=== PATIENT | female | born 1935 | race African-American/Black ===

== ENCOUNTER → 2016-09-28 | Outpatient (CLI) | payer MEDICARE, BC ==
[~2016-09-28] MED LIST: ASPI325T PO; AZOR5TAB2 PO; ENOX40P SQ; LACT PO; LORTA5 PO; METF500 PO; VYTO10TA35 PO
[2016-09-28 07:06] LABS: HEMATOCRIT 39.8 % (35.0-46.0); MEAN CELL VOLUME 82.7 FL (80.0-100.0); MEAN CORPUSCULAR HEMOGLOBIN 28.2 PG (27.0-34.0); MEAN CORPUSCULAR HGB CONC 34.1 % (32.0-36.0); PLATELET COUNT 234 TH/MM3 (150-450); RED BLOOD COUNT 4.81 MIL/MM3 (4.00-5.30); RED CELL DISTRIBUTION WIDTH 15.8 % (11.6-17.2); REVIEW FLAG FINAL; WHITE BLOOD COUNT 4.8 TH/MM3 (4.0-11.0)
[2016-09-28 07:24] LABS: BACTERIA, URINE RARE /hpf; BLOOD, URINE NEG (NEG); GLUCOSE,URINE NEG (NEG); KETONE, URINE NEG (NEG); MUCUS URINE FEW /lpf (OCC); NITRITE,URINE NEG (NEG); PH, URINE 6.5 (5.0-8.5); SQUAMOUS EPITHELIAL CELL URINE 2 /hpf (0-5); TRANSITIONAL EPI CELLS, URINE <1 /hpf; URINE COLOR YELLOW (YELLW/STRAW)
[2016-09-28 07:42] LABS: ANION GAP 6 MEQ/L (5-15); BLOOD UREA NITROGEN 12 MG/DL (7-18); CHLORIDE 102 MEQ/L (98-107); GLOMERULAR FILTRATION RATE 75 ML/MIN (>89); GLUCOSE,FASTING 163 MG/DL (74-99); LDL CHOLESTEROL 78 MG/DL (0-99); POTASSIUM 4.2 MEQ/L (3.5-5.1); SODIUM (NA) 136 MEQ/L (136-145); THYROXINE (T4) 10.5 MCG/DL (4.8-13.9)
[2016-09-28 15:47] LABS: HEMOGLOBIN A1a 0.9 %; HEMOGLOBIN Ao 82.7 %; HEMOGLOBIN LA1C 2.3 %; HEMOGLOBIN P3 4.2 %
== END ==
LOC: CLAB 06:35
PROVIDERS: ATTEND Internal Medicine
DX: E11.9 Type 2 diabetes mellitus without complications (principal); I10 Essential (primary) hypertension; R63.4 Abnormal weight loss; E78.5 Hyperlipidemia, unspecified; D64.9 Anemia, unspecified
CPT/HCPCS: 36415; 80048; 80061; 81001; 83036; 84436; 84443; 85027

== ENCOUNTER → 2017-01-11 | Outpatient (CLI) | payer MEDICARE, BC ==
[2017-01-11 08:37] LABS: MICRO ALBUMIN RANDOM URINE RAW 14.9 MG/L (0.0-30.0)
[2017-01-11 08:46] LABS: ANION GAP 7 MEQ/L (5-15); AST (GOT) 31 U/L (15-37); BICARBONATE 28.3 MEQ/L (21.0-32.0); BLOOD UREA NITROGEN 13 MG/DL (7-18); CHLORIDE 100 MEQ/L (98-107); GLOMERULAR FILTRATION RATE 83 ML/MIN (>89); GLUCOSE,FASTING 168 MG/DL (74-99); SODIUM (NA) 135 MEQ/L (136-145)
[2017-01-11 08:55] LABS: ALKALINE PHOSPHATASE 136 U/L (45-117); ALT (GPT) 35 U/L (10-53); FREE T3 2.47 PG/ML (2.18-3.98); FREE T4 1.11 NG/DL (0.76-1.46); HDL CHOLESTEROL 78.9 MG/DL (40.0-60.0); LDL CHOLESTEROL 132 MG/DL (0-99); TOTAL BILIRUBIN ADULT 0.3 MG/DL (0.2-1.0)
== END ==
LOC: CLAB 07:38
PROVIDERS: ATTEND Internal Medicine Endocrinology, Diabetes & Metabolism
DX: E11.65 Type 2 diabetes mellitus with hyperglycemia (principal); E11.42 Type 2 diabetes mellitus with diabetic polyneuropathy; E04.1 Nontoxic single thyroid nodule; E78.5 Hyperlipidemia, unspecified; I10 Essential (primary) hypertension
CPT/HCPCS: 36415; 80053; 80061; 82043; 84439; 84443; 84481

== ENCOUNTER → 2017-05-30 | Outpatient (CLI) | payer MEDICARE, BC ==
[2017-05-30 09:23] LABS: ANION GAP 8 MEQ/L (5-15); BICARBONATE 23.9 MEQ/L (21.0-32.0); BLOOD UREA NITROGEN 13 MG/DL (7-18); CHLORIDE 105 MEQ/L (98-107); GLOMERULAR FILTRATION RATE 84 ML/MIN (>89); GLUCOSE,FASTING 153 MG/DL (74-99); POTASSIUM 4.3 MEQ/L (3.5-5.1); SODIUM (NA) 137 MEQ/L (136-145)
[2017-05-30 09:28] LABS: BACTERIA, URINE RARE /hpf; BLOOD, URINE NEG (NEG); GLUCOSE,URINE NEG (NEG); KETONE, URINE NEG (NEG); NITRITE,URINE NEG (NEG); PH, URINE 6.5 (5.0-8.5); SQUAMOUS EPITHELIAL CELL URINE <1 /hpf (0-5); URINE COLOR LIGHT-YELLOW (YELLW/STRAW)
[2017-05-30 09:29] LABS: HDL CHOLESTEROL 87.5 MG/DL (40.0-60.0); LDL CHOLESTEROL 78 MG/DL (0-99)
[2017-05-30 15:42] LABS: HEMOGLOBIN A1a 0.9 %; HEMOGLOBIN A1b 1.9 %; HEMOGLOBIN Ao 83.1 %; HEMOGLOBIN LA1C 2.2 %
== END ==
LOC: CLAB 08:23
DX: I10 Essential (primary) hypertension (principal); E11.9 Type 2 diabetes mellitus without complications; E78.5 Hyperlipidemia, unspecified
CPT/HCPCS: 36415; 80048; 80061; 81001; 83036

== ENCOUNTER → 2017-11-23 | Outpatient (CLI) | payer MEDICARE, BC ==
[2017-11-23 17:05] LABS: CREATININE 0.89 MG/DL (0.50-1.00)
== END ==
LOC: CLAB 16:18
PROVIDERS: ATTEND Thoracic Surgery (Cardiothoracic Vascular Surgery)
DX: R94.4 Abnormal results of kidney function studies (principal)
CPT/HCPCS: 36415; 82565; 84520

== ENCOUNTER 2018-01-29 12:58 | Observation (INO) | payer MEDICARE, BC ==
[~2018-01-29] VITALS: Ht 160 cm; Wt 65.0 kg
[2018-01-29 13:10] VITALS: BP 234/95; PULSE 82; RESP 19; TEMP 97.6; O2SAT 99
[2018-01-29] MEDS ORDERED: METF500T PO (13:20)
[2018-01-29] MEDS ORDERED: ASPI-183 PO (13:20)
[2018-01-29] MEDS ORDERED: BLOOD PRESSURE PILL (13:22)
[2018-01-29] MEDS ORDERED: METOPROLOL TARTRATE 5 MG/5 ML VIAL IV PUSH ONE (13:30)
[2018-01-29] MEDS ORDERED: SODIUM CHLORIDE 0.9% FLUSH 10 ML FLUSH IVF PRN (13:30)
[2018-01-29 13:36] LABS: BASOPHIL % 0.6 % (0.0-2.0); EOSINOPHIL # 0.1 TH/MM3 (0-0.4); EOSINOPHIL % 1.1 % (0.0-4.0); HEMATOCRIT 44.3 % (35.0-46.0); HEMOGLOBIN 14.5 GM/DL (11.6-15.3); LYMPH % 21.2 % (9.0-44.0); LYMPHOCYTE # 1.5 TH/MM3 (1.0-4.8); MEAN CELL VOLUME 85.5 FL (80.0-100.0); MEAN CORPUSCULAR HGB CONC 32.7 % (32.0-36.0); MEAN PLATELET VOLUME 7.9 FL (7.0-11.0); MONO % 5.8 % (0.0-8.0); MONOCYTE # 0.4 TH/MM3 (0-0.9); NEUT % 71.3 % (16.0-70.0); PLATELET COUNT 247 TH/MM3 (150-450); RED BLOOD COUNT 5.18 MIL/MM3 (4.00-5.30); RED CELL DISTRIBUTION WIDTH 15.2 % (11.6-17.2); WHITE BLOOD COUNT 7.1 TH/MM3 (4.0-11.0)
[2018-01-29 13:57] LABS: ALBUMIN 4.4 GM/DL (3.4-5.0); ALT (GPT) 27 U/L (10-53); AST (GOT) 36 U/L (15-37); BICARBONATE 24.2 MEQ/L (21.0-32.0); BLOOD UREA NITROGEN 14 MG/DL (7-18); CALCIUM 9.1 MG/DL (8.5-10.1); CHLORIDE 99 MEQ/L (98-107); CREATININE 1.02 MG/DL (0.50-1.00); GLOMERULAR FILTRATION RATE 62 ML/MIN (>89); GLUCOSE,RANDOM 176 MG/DL (74-106); SODIUM (NA) 133 MEQ/L (136-145)
[2018-01-29 13:59] LABS: ALKALINE PHOSPHATASE 149 U/L (45-117); TOTAL BILIRUBIN ADULT 0.4 MG/DL (0.2-1.0); TOTAL PROTEIN 9.4 GM/DL (6.4-8.2); TROPONIN I LESS THAN 0.02 NG/ML (0.02-0.05)
--- NOTE | 2018-01-29 14:01 | RADRPT ---
EXAM DATE: 01/29/2018 1:52 PM EDT AGE/SEX: 82 years / Female INDICATIONS: Palpitations. CLINICAL DATA: This is the patient's initial encounter. Patient reports that signs and symptoms have been present for 1 day and indicates a pain score of 0/10. MEDICAL/SURGICAL HISTORY: . Hypercholesterolemia. Hypertension. Rheumatoid arthritis. Neck jennifer n. Oral lesions. Head trauma. Syncope. Hyperlipidemia. Diabetes. . Hysterectomy. COMPARISON: [facility] [place], 02/10[place]. . FINDINGS: Portable AP view of the chest demonstrates a normal-sized cardiac silhouette. No effusion, consolidat ion, or pneumothorax is identified. The bones and soft tissues demonstrate no acute finding. There is calcification of the aorta. CONCLUSION: No acute cardiopulmonary abnormality is identified. Electronically signed by: Jesus Jerome MD 01/29/2018 2:00 PM EDT
[2018-01-29 14:07] VITALS: BP 149/70; PULSE 59; RESP 17; O2SAT 98
[2018-01-29 14:35] LABS: BILIRUBIN, URINE NEG (NEG); BLOOD, URINE SMALL (NEG); GLUCOSE,URINE 50 mg/dL (NEG); HYALINE CAST, URINE 3 /lpf (RARE); KETONE, URINE NEG (NEG); MUCUS URINE FEW /lpf (OCC); NITRITE,URINE NEG (NEG); SQUAMOUS EPITHELIAL CELL URINE 1 /hpf (0-5); URINE COLOR Straw (YELLW/STRAW); URINE LEUKOCYTE ESTERASE TRACE (NEG)
--- NOTE | 2018-01-29 14:42 | RADRPT ---
EXAM DATE: 01/29/2018 2:21 PM EDT AGE/SEX: 82 years / Female INDICATIONS: Dizziness today. CLINICAL DATA: This is the patient's initial encounter. Patient reports that signs and symptoms have been present for 1 day and indicates a pain score of 0/10. MEDICAL/SURGICAL HISTORY: Hypertension. Diabetes. Hysterectomy. RADIATION DOSE: 51.22 CTDI (mGy) COMPAR[place]: [facility] [place], 02/10/2016. . TECHNIQUE: CT of the head without contrast. Using automated exposure control and adjustment of the mA and/or kV according to patient size, radiation dose was kept as low as reasonably achievable to ob tain optimal diagnostic quality images. FINDINGS: Cerebrum: The ventricles are normal for age. Stable decreased attenuation in the supratentorial whi te matter and internal capsule, characteristic of diffuse ischemic change, stable from 2016. No evide nce of midline shift, mass lesion, hemorrhage or acute infarction. No extraaxial fluid collections a re seen. Posterior Fossa: The cerebellum and brainstem are intact. The 4th ventricle is midline. The cerebe llopontine angle is unremarkable. Extracranial: The visualized portion of the orbits is intact. Skull: The calvaria is intact. No evidence of skull fracture. CONCLUSION: 1. No acute findings in the brain. 2. Ischemic white matter findings, unchanged from 2016. Electronically signed by: Aolnso Manzanares MD 01/29/2018 2:40 PM EDT
--- NOTE | 2018-01-29 14:43 | PD ---
HPI Chief Complaint: Syncope/Near-Syncope Time Seen by Provider: 13:17 Travel History International Travel<30 days: No Contact w/Intl Traveler<30days: No Traveled to known affect area: No History of Present Illness HPI 82-year-old female patient presents to the ER today brought in by EMS, started getting dizzy and felt like she was going to pass out, had a sudden onset of right flank pain which she stated was a 7 out of 10, lasted about 10-15 minutes and is now gone. She states that she is still feeling intermittent dizziness, but states that the room is not spinning around. She did not lose consciousness. She denies any chest pains, trouble breathing, or any other symptoms now. She states that she was feeling fine this morning, was getting ready to go to buddhist. Modifying Factors: None Associated Signs & Symptoms: Episode of dizziness, near syncope, right flank pain Risk Factors: Elderly PFSH Past Medical History Arthritis: Yes Asthma: No Autoimmune Disease: No Blood Disorders: No Anxiety: No Depression: No Heart Rhythm Problems: No Cancer: No Cardiovascular Problems: Yes High Cholesterol: Yes Chemotherapy: No Chest Pain: No Congestive Heart Failure: No COPD: No Cerebrovascular Accident: No Diabetes: Yes Patient Takes Glucophage: Yes Diminished Hearing: No Endocrine: Yes Gastrointestinal Disorders: No GERD: No Glaucoma: No Genitourinary: No Headaches: No Hepatitis: No Hiatal Hernia: No Hypertension: Yes Immune Disorder: No Implanted Vascular Access Dvce: Yes Kidney Stones: No Musculoskeletal: No Neurologic: No Psychiatric: No Reproductive: No Respiratory: No Immunizations Current: No Migraines: No Myocardial Infarction: No Radiation Therapy: No Renal Failure: No Seizures: No Sickle Cell Disease: No Sleep Apnea: No Thyroid Disease: No Triglycerides - High: Yes Ulcer: No Tetanus Vaccination: < 5 Years Influenza Vaccination: No ?: Not Menopausal: Yes Past Surgical History Abdominal Surgery: No AICD: No Appendectomy: No Arteriovenous Shunt: No Body Medical Devices: LISA TO THE RIGHT FEMUR AND RIGHT KNEE Cardiac Surgery: No Cholecystectomy: No Ear Surgery: No Endocrine Surgery: No Eye Surgery: No Genitourinary Surgery: No Gynecologic Surgery: Yes (HYSTERECTOMY) Hysterectomy: Yes Insulin Pump: No Joint Replacement: No Neurologic Surgery: No Oral Surgery: No Pacemaker: No Thoracic Surgery: No Other Surgery: Yes (HYSTERECTOMY) Social History Alcohol Use: No Tobacco Use: No Substance Use: No Allergies-Medications (Allergen,Severity, Reaction): Coded Allergies: penicillin G (Unverified Allergy, Severe, Edema, 01/29/18) Reported Meds & Prescriptions Reported Meds & Active Scripts Active Reported [Blood Pressure Pill] Metformin (Metformin HCl) 500 Mg Tab 500 Mg PO BIDPC Aspirin 325 Mg Tab 325 Mg PO DAILY Review of Systems Except as stated in HPI: all other systems reviewed are Neg Physical Exam Narrative GENERAL: Well-developed elderly -Malagasy female patient currently in mild distress. Awake and oriented 3. SKIN: Focused skin assessment warm/dry. HEAD: Atraumatic. Normocephalic. EYES: Pupils equal and round. No scleral icterus. No injection or drainage. ENT: No nasal bleeding or discharge. Mucous membranes pink and moist. NECK: Trachea midline. No JVD. Supple. CARDIOVASCULAR: Regular rate and rhythm. No murmur appreciated. RESPIRATORY: No accessory muscle use. Clear to auscultation. Breath sounds equal bilaterally. GASTROINTESTINAL: Abdomen soft, non-tender, nondistended. Hepatic and splenic margins not palpable. MUSCULOSKELETAL: No obvious deformities. No clubbing. No cyanosis. No edema. NEUROLOGICAL: Awake and alert. No obvious cranial nerve deficits. Motor grossly within normal limits. Normal speech. PSYCHIATRIC: Appropriate mood and affect; insight and judgment normal. Data Data Last Documented VS Vital Signs Date Time Temp Pulse Resp B/P (MAP) Pulse Ox O2 Delivery O2 Flow Rate FiO2 01/29/18 14:07 59 17 149/70 (96) 98 Room Air 01/29/18 13:10 97.6 Orders Orders Electrocardiogram (01/29/18 13:17) Complete Blood Count With Diff (01/29/18 13:17) Comprehensive Metabolic Panel (01/29/18 13:17) Troponin I (01/29/18 13:17) Act Partial Throm Time (Ptt) (01/29/18 13:17) Prothrombin Time / Inr (Pt) (01/29/18 13:17) Urinalysis - C+S If Indicated (01/29/18 13:17) Chest, Single Ap (01/29/18 13:17) Ct Brain W/O Iv Contrast(Rout) (01/29/18 13:17) Ecg Monitoring (01/29/18 13:17) Iv Access Insert/Monitor (01/29/18 13:17) Oximetry (01/29/18 13:17) Sodium Chloride 0.9% Flush (Ns Flush) (01/29/18 13:30) Ct Abd/Pel W/O Iv Contrast (01/29/18 13:17) Metoprolol Tartrate Inj (Lopressor Inj) (01/29/18 13:30) Admit Order (Ed Use Only) (01/29/18 15:33) Place In Observation (01/29/18 ) Vital Signs (Adult) Q4H (01/29/18 15:35) Activity Oob Ad Norma (01/29/18 15:35) Belt Puncher / Telemetry CLAUDIA.Q8H (01/29/18 15:35) Diet Heart Healthy (01/29/18 Dinner) Sodium Chloride 0.9% Flush (Ns Flush) (01/29/18 15:45) Sodium Chloride 0.9% Flush (Ns Flush) (01/29/18 21:00) Basic Metabolic Panel (Bmp) (01/30/18 06:00) Echo 2d Comp With Doppler (01/29/18 ) Us Carotid Arteries Comp Bilat (01/29/18 ) Enalaprilat Inj (Vasotec Inj) (01/29/18 15:45) Labs Laboratory Tests Test 01/29/18 13:25 01/29/18 14:00 White Blood Count 7.1 TH/MM3 Red Blood Count 5.18 MIL/MM3 Hemoglobin 14.5 GM/DL Hematocrit 44.3 % Mean Corpuscular Volume 85.5 FL Mean Corpuscular Hemoglobin 28.0 PG Mean Corpuscular Hemoglobin Concent 32.7 % Red Cell Distribution Width 15.2 % Platelet Count 247 TH/MM3 Mean Platelet Volume 7.9 FL Neutrophils (%) (Auto) 71.3 % Lymphocytes (%) (Auto) 21.2 % Monocytes (%) (Auto) 5.8 % Eosinophils (%) (Auto) 1.1 % Basophils (%) (Auto) 0.6 % Neutrophils # (Auto) 5.0 TH/MM3 Lymphocytes # (Auto) 1.5 TH/MM3 Monocytes # (Auto) 0.4 TH/MM3 Eosinophils # (Auto) 0.1 TH/MM3 Basophils # (Auto) 0.0 TH/MM3 CBC Comment DIFF FINAL Differential Comment Prothrombin Time 10.0 SEC Prothromb Time International Ratio 1.0 RATIO Activated Partial Thromboplast Time 22.2 SEC Blood Urea Nitrogen 14 MG/DL Creatinine 1.02 MG/DL Random Glucose 176 MG/DL Total Protein 9.4 GM/DL Albumin 4.4 GM/DL Calcium Level 9.1 MG/DL Alkaline Phosphatase 149 U/L Aspartate Amino Transf (AST/SGOT) 36 U/L Alanine Aminotransferase (ALT/SGPT) 27 U/L Total Bilirubin 0.4 MG/DL Sodium Level 133 MEQ/L Potassium Level 4.0 MEQ/L Chloride Level 99 MEQ/L Carbon Dioxide Level 24.2 MEQ/L Anion Gap 10 MEQ/L Estimat Glomerular Filtration Rate 62 ML/MIN Troponin I LESS THAN 0.02 NG/ML Urine Color Straw Urine Turbidity CLEAR Urine pH 6.0 Urine Specific [place] 1.006 Urine Protein 100 mg/dL Urine Glucose (UA) 50 mg/dL Urine Ketones NEG mg/dL Urine Occult Blood SMALL Urine Nitrite NEG Urine Bilirubin NEG Urine Urobilinogen LESS THAN 2 mg/dL Urine Leukocyte Esterase TRACE Urine RBC 2 /hpf Urine WBC 1 /hpf Urine Squamous Epithelial Cells 1 /hpf Urine Hyaline Casts 3 /lpf Urine Mucus FEW /lpf Microscopic Urinalysis Comment CULT NOT INDICATED MDM Medical Decision Making Medical Screen Exam Complete: Yes Emergency Medical Condition: Yes Medical Record Reviewed: Yes Interpretation(s) EKG shows normal sinus rhythm at a rate of 76 bpm. No signs of acute ST elevations. Nonspecific T-wave flipping in 3 and aVF. Laboratory Tests Test 01/29/18 13:25 01/29/18 14:00 Neutrophils (%) (Auto) 71.3 % (16.0-70.0) Activated Partial Thromboplast Time 22.2 SEC (24.3-30.1) Creatinine 1.02 MG/DL (0.50-1.00) Random Glucose 176 MG/DL (74-106) Total Protein 9.4 GM/DL (6.4-8.2) Alkaline Phosphatase 149 U/L (45-117) Sodium Level 133 MEQ/L (136-145) Estimat Glomerular Filtration Rate 62 ML/MIN (>89) Troponin I LESS THAN 0.02 NG/ML Urine Protein 100 mg/dL (NEG-TRACE) Urine Occult Blood SMALL (NEG) Urine Leukocyte Esterase TRACE (NEG) Urine Mucus FEW /lpf (OCC) Last [address] 6/17/18 1317 Signed Impressions: CONCLUSION: 1. No acute findings in the brain. 2. Ischemic white matter findings, unchanged from 2016. Chest X-Ray 01/29/181316 Signed Impressions: CONCLUSION: No acute cardiopulmonary abnormality is identified. Abdomen/Pelvis CT 01/29/181316 Signed Impressions: CONCLUSION: 1. Negative renal colic CT. Differential Diagnosis Near syncopal episode, right flank pain: Dehydration versus electrolyte abnormalities versus UTI/pyelonephritis versus renal colic versus dysrhythmias versus ACS Narrative Course Patient's blood pressure was fairly elevated in the ER. She was given IV metoprolol with improvement in blood pressures on reevaluation an hour later. She is also feeling better now or later. EKG did show some nonspecific T-wave changes in the inferior leads. No acute ST elevations. Lab work was fairly unremarkable. At this point, my plan would be to admit her for near syncope, hypertensive urgency. Case has been discussed with Dr. Garcia for admission. Diagnosis Primary Impression: Syncope Additional Impression: Hypertension Admitting Information Admitting Physician Requests: Admit Constance Noonan MD Jan 29, 2018 14:43
--- NOTE | 2018-01-29 14:49 | RADRPT ---
EXAM DATE: 01/29/2018 2:40 PM EDT AGE/SEX: 82 years / Female INDICATIONS: Right flank pain today. CLINICAL DATA: This is the patient's initial encounter. Patient reports that signs and symptoms have been present for 1 day and indicates a pain score of 8/10. MEDICAL/SURGICAL HISTORY: Hypertension. Diabetes. Hysterectomy. RADIATION DOSE: 5.45 CTDI (mGy) COMPARISON: No prior exams available for comparison. TECHNIQUE: Renal colic protocol. Multiple contiguous axial images were obtained through the abdomen. Images were obtained using multiple row detector helical technique. Using dose reduction techniques, radiation dose was kept as low as reasonably achievable to obtain optimal diagnostic quality images. FINDINGS: Right side: No calcified renal stones. No evidence of hydronephrosis. Normal dimension right ureter. Left side: No calcified renal stones. No evidence of hydronephrosis. Normal dimension with ureter. 2 cm low-density lesion mid pole characteristic of a cyst. Bladder: Smooth margins. No calcifications within the lumen. Other: No dilated loops of small or large bowel and stop no calcified gallstones. Normal dimension ab dominal aorta. No evidence of free fluid. CONCLUSION: 1. Negative renal colic CT. Electronically signed by: Alonso Manzanares MD 01/29/2018 2:47 PM EDT
[2018-01-29] MEDS ORDERED: ENALAPRILAT 1.25 MG/ML VIAL IV PUSH PRN (15:45)
[2018-01-29] MEDS ORDERED: SODIUM CHLORIDE 0.9% FLUSH 10 ML FLUSH IV FLUSH PRN (15:45)
[2018-01-29 16:06] VITALS: BP 164/77; PULSE 70; RESP 16; O2SAT 100
[2018-01-29] MEDS ORDERED: GLUCAGON 1 MG/ML VIAL OTHER PRN (17:30)
[2018-01-29] MEDS ORDERED: DEXTROSE 50% IN WATER 50 ML VIAL(D50) IV PUSH PRN (17:30)
--- NOTE | 2018-01-29 17:31 | HHI.HP ---
HPI Service [facility] Hospitalists Primary Care Physician Bandar Arreola MD Admission Diagnosis Near syncope/hypertensive urgency Diagnoses: Chief Complaint: Right sided back pain Nausea Dizziness Travel History International Travel<30 Days: No Contact w/Intl Traveler <30 Da: No Traveled to Known Affected Are: No History of Present Illness This is a 82-year-old -[place] female with past medical history significant for hypertension, DM and dyslipidemia who presents to [facility] ED with complaints of sudden onset of severe right sided back pain 1 day. Patient states that she has been feeling well and has been in her usual state of health. She woke up this morning and per her normal routine ate breakfast and took a shower eating ready for restorationist. While she was seated, she developed sudden onset of right-sided back pain that she states was the worst pain she has ever had, 10 out of 10 and worse with movement. Patient reports that shortly after the pain started, she was able to ambulate with great difficulty secondary to pain to her bedroom and lie down for about 5-10 minutes which helped to relieve her back pain some. She reports associated nausea and "feeling woozy". She denies any dizziness. She denies any lateralizing symptoms but does report that she felt weak all over and was concerned she would fall. She was able to get up and go to the kitchen and take a [employer] powder. She denies any recent injury or change in her regular activity level. Patient states she ambulates unassisted. She continues to drive. She denies any previous history of back spasms or kidney stones. She states she has been eating and drinking her normal amount. She reports good urine output and denies any complaints of dysuria. She denies any diarrhea or constipation. She denies any recent fever or chills. She denies any complaints of chest pain or shortness of breath. In the ED, she was noted to have uncontrolled BP of 234 /95. Her UA was significant for proteinuria, small blood and trace leukocytes. CBC is unremarkable. Chemistry panel significant for hyponatremia with sodium of 144, creatinine 1.02, glucose 176 and alk phos of 149. CT of abdomen and pelvis was unremarkable. CT the head showed no acute findings. CXR was unremarkable. At present, patient states she feels a little tired. She is not having any back pain at this time. Review of Systems Except as stated in HPI: all other systems reviewed are Neg Past Family Social History Past Medical History Hypertension Diabetes Dyslipidemia Past Surgical History Right ankle fracture surgery Hysterectomy Cataract sx Repair of right femur fracture Reported Medications [Blood Pressure Pill] Metformin (Metformin HCl) 500 Mg Tab 500 Mg PO BIDPC Aspirin 325 Mg Tab 325 Mg PO DAILY Allergies: Coded Allergies: penicillin G (Unverified Allergy, Severe, Edema, 01/29/18) Active Ordered Medications Current Medications Medications (Trade) Dose Ordered Sig/Tee Route Start Time Stop Time Status Last Admin (NS Flush) 2 ml UNSCH PRN IV FLUSH 01/29/18 15:45 (NS Flush) 2 ml BID IV FLUSH 01/29/18 21:00 (Vasotec Inj) 1.25 mg Q6H PRN IV PUSH 01/29/18 15:45 Family History Mother, heart disease Father, stroke Social History Patient denies any tobacco use, alcohol use or illicit drug use. Physical Exam Vital Signs Vital Signs Date Time Temp Pulse Resp B/P (MAP) Pulse Ox O2 Delivery O2 Flow Rate FiO2 01/29/18 16:12 01/29/18 16:06 70 16 164/77 (106) 100 01/29/18 14:07 59 17 149/70 (96) 98 Room Air 01/29/18 13:10 97.6 82 19 234/95 (141) 99 Physical Exam GENERAL: This is a well-nourished, well-developed elderly -[place] female patient, who appears much younger than stated age, in no apparent distress. Awake and alert. SKIN: No rashes, ecchymoses or lesions. Cool and dry. HEAD: Atraumatic. Normocephalic. No temporal or scalp tenderness. No facial asymmetry. EYES: Pupils equal round and reactive. Extraocular motions intact. No scleral icterus. No injection or drainage. ENT: Nose without bleeding or purulent drainage. Throat without erythema, tonsillar hypertrophy or exudate. Uvula midline. Airway patent. NECK: Trachea midline. No lymphadenopathy. Supple, nontender, no meningeal signs. CARDIOVASCULAR: Regular rate and rhythm without murmurs, gallops, or rubs. RESPIRATORY: Clear to auscultation. Breath sounds equal bilaterally. No wheezes , rales, or rhonchi. GASTROINTESTINAL: Abdomen soft, non-tender, nondistended. No hepato-splenomegaly , or palpable masses. No guarding. +Mild right sided CVAT. MUSCULOSKELETAL: Extremities without clubbing, cyanosis, or edema. No joint tenderness, effusion, or edema noted. No calf tenderness. NEUROLOGICAL: Awake and alert. Cranial nerves II through XII grossly intact. Motor and sensory grossly within normal limits. No focal neurologic findings appreciated. Normal speech. Laboratory Laboratory Tests Test 01/29/18 13:25 01/29/18 14:00 White Blood Count 7.1 Red Blood Count 5.18 Hemoglobin 14.5 Hematocrit 44.3 Mean Corpuscular Volume 85.5 Mean Corpuscular Hemoglobin 28.0 Mean Corpuscular Hemoglobin Concent 32.7 Red Cell Distribution Width 15.2 Platelet Count 247 Mean Platelet Volume 7.9 Neutrophils (%) (Auto) 71.3 Lymphocytes (%) (Auto) 21.2 Monocytes (%) (Auto) 5.8 Eosinophils (%) (Auto) 1.1 Basophils (%) (Auto) 0.6 Neutrophils # (Auto) 5.0 Lymphocytes # (Auto) 1.5 Monocytes # (Auto) 0.4 Eosinophils # (Auto) 0.1 Basophils # (Auto) 0.0 CBC Comment DIFF FINAL Differential Comment Prothrombin Time 10.0 Prothromb Time International Ratio 1.0 Activated Partial Thromboplast Time 22.2 Blood Urea Nitrogen 14 Creatinine 1.02 Random Glucose 176 Total Protein 9.4 Albumin 4.4 Calcium Level 9.1 Alkaline Phosphatase 149 Aspartate Amino Transf (AST/SGOT) 36 Alanine Aminotransferase (ALT/SGPT) 27 Total Bilirubin 0.4 Sodium Level 133 Potassium Level 4.0 Chloride Level 99 Carbon Dioxide Level 24.2 Anion Gap 10 Estimat Glomerular Filtration Rate 62 Troponin I LESS THAN 0.02 Urine Color Straw Urine Turbidity CLEAR Urine pH 6.0 Urine Specific [place] 1.006 Urine Protein 100 Urine Glucose (UA) 50 Urine Ketones NEG Urine Occult Blood SMALL Urine Nitrite NEG Urine Bilirubin NEG Urine Urobilinogen LESS THAN 2 Urine Leukocyte Esterase TRACE Urine RBC 2 Urine WBC 1 Urine Squamous Epithelial Cells 1 Urine Hyaline Casts 3 Urine Mucus FEW Microscopic Urinalysis Comment CULT NOT INDICATED Result Diagram: 01/29/18 8223 01/29/18 1325 Imaging Last Impressions Head CT 01/29/18 1317 Signed Impressions: CONCLUSION: 1. No acute findings in the brain. 2. Ischemic white matter findings, unchanged from 2016. Chest X-Ray 01/29/181316 Signed Impressions: CONCLUSION: No acute cardiopulmonary abnormality is identified. Abdomen/Pelvis CT 01/29/181316 Signed Impressions: CONCLUSION: 1. Negative renal colic CT. Caprini VTE Risk Assessment Caprini VTE Risk Assessment: Mod/High Risk (score >= 2) Caprini Risk Assessment Model Point Value = 1 Point Value = 2 Point Value = 3 Point Value = 5 Age 41-60 Minor surgery BMI > 25 kg/m2 Swollen legs Varicose veins or History of unexplained or recurrent spontaneous Oral contraceptives or hormone replacement Sepsis (< 1 month) Serious lung disease, including pneumonia (< 1 month) Abnormal pulmonary function Acute myocardial infarction Congestive heart failure (< 1 month) History of inflammatory bowel disease Medical patient at bed rest Age 61-74 Arthroscopic surgery Major open surgery (> 45 min) Laparoscopic surgery (> 45 min) Malignancy Confined to bed (> 72 hours) Immobilizing plaster cast Central venous access Age >= 75 History of VTE Family history of VTE Factor V Leiden Prothrombin [id number] Lupus anticoagulant Anticardiolipin antibodies Elevated serum homocysteine Heparin-induced thrombocytopenia Other congenital or acquired thrombophilia Stroke (< 1 month) Elective arthroplasty Hip, pelvis, or leg fracture Acute spinal cord injury (< 1 month) Prophylaxis Regimen Total Risk Factor Score Risk Level Prophylaxis Regimen 0-1 Low Early ambulation 2 Moderate Order ONE of the following: *Sequential Compression Device (SCD) *Heparin 5000 units SQ BID 3-4 Higher Order ONE of the following medications: *Heparin 5000 units SQ TID *Enoxaparin/Lovenox 40 mg SQ daily (WT < 150 kg, CrCl > 30 mL/min) *Enoxaparin/Lovenox 30 mg SQ daily (WT < 150 kg, CrCl > 10-29 mL/min) *Enoxaparin/Lovenox 30 mg SQ BID (WT < 150 kg, CrCl > 30 mL/min) AND/OR *Sequential Compression Device (SCD) 5 or more Highest Order ONE of the following medications: *Heparin 5000 units SQ TID (Preferred with Epidurals) *Enoxaparin/Lovenox 40 mg SQ daily (WT < 150 kg, CrCl > 30 mL/min) *Enoxaparin/Lovenox 30 mg SQ daily (WT < 150 kg, CrCl > 10-29 mL/min) *Enoxaparin/Lovenox 30 mg SQ BID (WT < 150 kg, CrCl > 30 mL/min) AND *Sequential Compression Device (SCD) Assessment and Plan Assessment and Plan 82-year-old -[place] female with past medical history significant for hypertension, DM and dyslipidemia who presents to [facility] ED with complaints of sudden onset of severe right sided back pain 1 day with associated generalized weakness, nausea and lightheadedness. Near syncopal episode Suspect nausea and dizziness secondary to severe back pain and hypertensive urgency, ?vasovagal episode CT head negative for acute process, images reviewed by me -obtain 2D echo and carotid US -PT eval/tx -neuro checks -check orthostatic BP measurements -fall precautions -Monitor on cardiac telemetry Severe right sided back pain, possibly secondary to back spasm or renal colic, now resolved CT abd/pelvis unremarkable, no e/o nephrolithiasis, images reviewed by me UA positive proteinuria, small blood and trace leukocytes Patient denies any history of kidney stones or back problems. She does exhibit right-sided CVA tenderness on exam. -PT eval/tx -fall precautions Hypertension, uncontrolled, suspect secondary to pain BP 234/95 at ED presentation, much improved,now 164/77 -We will resume patient on home blood pressure medication once medication reconciliation updated -Vasotec IV as needed with parameters -Continue to monitor BP and adjust treatment accordingly Diabetes mellitus -Diabetic heart healthy diet -Accu-Cheks and insulin sliding scale -Hold home dose of metformin KRYSTA, suspect secondary to decreased oral intake Creatinine 1.02, previous creatinine 0.89 11/23/17 -Hold metformin -Avoid nephrotoxic agents -Continue to monitor kidney function as indicated Hyponatremia, mild, asymptomatic -repeat BMP in am -encourage po fluid intake DVT prophylaxis -bilateral SCD/ESTRELLA hose The exam, history, and the medical decision-making described in the above note were completed with the assistance of the mid-level provider. I reviewed and agree with the findings presented. I attest that I had a [id number] encounter with the patient on the same day, and personally performed and documented my assessment and findings in the medical record. Patient seen and examined. She reports she is feeling better since arriving to the emergency room. No longer having dizziness. BP still elevated. GENERAL: This is a well-nourished, well-developed patient, in no apparent distress. CARDIOVASCULAR: Normal rate and regular rhythm without murmurs, gallops, or rubs. RESPIRATORY: Good respiratory efforts. Breath sounds equal and clear to auscultation bilaterally. GASTROINTESTINAL: Abdomen soft, non-tender, non-distended. Normal active bowel sounds MUSCULOSKELETAL: Extremities without cyanosis, or edema. NEURO: Alert & Oriented x4 to person, place, time, situation. Moves all ext x4 PSYCH: Appropriate mood and affect. A/P Patient with near syncope. Could be vasovagal in nature. Sounds like she might have passed a kidney stone or just a brief colic episode. Monitor overnight. Workup as above. Discussed Condition With patient, nursing staff, Nuvia Menchaca Jan 29, 2018 17:31 Sedrick Garcia MD Jan 29, 2018 18:12
[2018-01-29 17:35] VITALS: BP 173/73; PULSE 70; RESP 18; TEMP 98.2; O2SAT 96
[2018-01-29] MEDS: amLODIPine BESYLATE 5 MG TAB PO SCH (18:42)
[2018-01-29 20:13] VITALS: BP 147/70; PULSE 65; RESP 18; TEMP 98; O2SAT 99
[2018-01-29] MEDS: SODIUM CHLORIDE 0.9% FLUSH 10 ML FLUSH IV FLUSH SCH (21:24)
[2018-01-29] MEDS: INSULIN ASPART SUPPLEMENTAL SCALE SQ SCH (21:24)
[2018-01-29 22:58] VITALS: BP 145/67; PULSE 65; RESP 18; TEMP 98.1; O2SAT 98
[2018-01-30 02:55] VITALS: BP 129/62; PULSE 62; RESP 18; TEMP 98.1; O2SAT 96
[2018-01-30 07:24] VITALS: BP 157/74; PULSE 66; RESP 16; TEMP 97.6; O2SAT 96
[2018-01-30 08:02] VITALS: PULSE 72
[2018-01-30] MEDS: INSULIN ASPART SUPPLEMENTAL SCALE SQ SCH (08:17)
[2018-01-30] MEDS: amLODIPine BESYLATE 5 MG TAB PO SCH (08:17)
[2018-01-30] MEDS: SODIUM CHLORIDE 0.9% FLUSH 10 ML FLUSH IV FLUSH SCH (08:18)
[2018-01-30 09:31] LABS: BICARBONATE 26.1 MEQ/L (21.0-32.0); BLOOD UREA NITROGEN 13 MG/DL (7-18); CALCIUM 9.1 MG/DL (8.5-10.1); CHLORIDE 103 MEQ/L (98-107); CREATININE 0.81 MG/DL (0.50-1.00); GLOMERULAR FILTRATION RATE 82 ML/MIN (>89); GLUCOSE,RANDOM 142 MG/DL (74-106); SODIUM (NA) 138 MEQ/L (136-145)
[2018-01-30 09:32] LABS: PHOSPHORUS 3.5 MG/DL (2.5-4.9)
[2018-01-30] MEDS ORDERED: AMLO5 PO (10:11)
[2018-01-30] MEDS ORDERED: ASPI81TA23 PO (10:11)
--- NOTE | 2018-01-30 10:12 | HHI.DCPOC ---
Discharge Care Plan Diagnosis: (1) Back spasm (2) Intractable low back pain (3) Hypertension Goals to Promote Your Health * To prevent worsening of your condition and complications * To maintain your health at the optimal level Directions to Meet Your Goals Take your medications as prescribed Follow your dietary instruction Follow activity as directed Keep your appointments as scheduled Take your immunizations and boosters as scheduled If your symptoms worsen call your PCP, if no PCP go to Urgent Care Center or Emergency Room Smoking is Dangerous to Your Health. Avoid second hand smoke Call the 24-hour hour crisis hotline for domestic abuse at Suleiman Pedroza MD Jan 30, 2018 10:12
--- NOTE | 2018-01-30 10:17 | HHI.PR ---
Subjective Remarks Nursing denies any deterioration since last night. Patient herself says she feels much better, says she is doing well. Denies any back pain at this time. Objective Vital Signs Date Time Temp Pulse Resp B/P (MAP) Pulse Ox O2 Delivery O2 Flow Rate FiO2 01/30/18 07:24 97.6 66 16 157/74 (101) 96 01/30/18 02:55 98.1 62 18 129/62 (84) 96 01/29/18 22:58 98.1 65 18 145/67 (93) 98 01/29/18 20:13 98.0 65 18 147/70 (95) 99 01/29/18 17:35 98.2 70 18 173/73 (106) 96 01/29/18 16:12 01/29/18 16:06 70 16 164/77 (106) 100 01/29/18 14:07 59 17 149/70 (96) 98 Room Air 01/29/18 13:10 97.6 82 19 234/95 (141) 99 I/O 01/29/18 01/29/18 01/29/18 01/30/18 01/30/18 01/30/18 07:00 15:00 23:00 07:00 15:00 23:00 Intake Total 400 ml Balance 400 ml Intake Oral 400 ml # Voids 3 Result Diagram: 01/29/18 1325 01/30/18 0740 Objective Remarks Normal right flank tenderness to palpation noted today Sitting up in bed, awake, alert, no acute distress, pleasant demeanor A/P Assessment and Plan Intractable right flank pain -resolved. May have been either a kidney stone in the passed or a severe muscle spasm. UA is negative. Upon history review, there is no overt evidence of true syncopal symptoms. The patient's blood pressure is under control now the patient is wanting to go home. No need for carotid ultrasound or echocardiogram at this time. Patient has met maximal benefit from hospitalization and is clinically stable for discharge. Patient was advised that she may alternate with heating pad and ice application at home should this recur if this truly is a muscle spasm. Patient was warned not to sleep or nap on her heating pad at home. Informed her that if pain symptoms recurred and persisted to return to the ED. Suleiman Pedroza MD Jan 30, 2018 10:17
[2018-01-30] MEDS ORDERED: WALKER WHEELS/F1 MIS (11:50)
--- NOTE | 2018-01-30 23:15 | EKG ---
Date Performed: 01/29/2018 Time Performed: 13:17:40 PTAGE: 82 years EKG: Sinus rhythm NONSPECIFIC T-WAVE ABNORMALITY ABNORMAL ECG PREVIOUS TRACING : 02/10/2016 17.07 DOCTOR: Eddi Khan Interpretating Date/Time 01/30/2018 23:02:39
== END 2018-01-30 11:24 | disposition home or self-care (01) ==
LOC: NEPE 12:58 → NEDA 15:36 → NEPHCDU 16:20
PROVIDERS: ADMIT Hospitalist; ATTEND Hospitalist
DX: R55 Syncope and collapse (principal); M62.830 Muscle spasm of back; M54.5 Low back pain; R42 Dizziness and giddiness; I10 Essential (primary) hypertension; E11.9 Type 2 diabetes mellitus without complications; R80.9 Proteinuria, unspecified; E78.00 Pure hypercholesterolemia, unspecified; R11.0 Nausea; E78.5 Hyperlipidemia, unspecified; E87.1 Hypo-osmolality and hyponatremia; N17.9 Acute kidney failure, unspecified; R00.2 Palpitations; R94.31 Abnormal electrocardiogram [ECG] [EKG]
CPT/HCPCS: 70450; 71045; 74176; 80048; 80053; 81001; 82306; 82607; 82948; 84100; 84443; 84484; 85025; 85610; 85730; 93005; 96374; 97161; 99285; G0378; G8987; G8988; J1815

== ENCOUNTER 2018-02-01 09:30 | Emergency (ER) | payer MEDICARE, BC ==
[~2018-02-01] VITALS: Ht 160 cm; Wt 65.0 kg
[~2018-02-01 09:30] MED LIST changes: +AMLO5 PO; -ASPI325T PO; +ASPI81TA23 PO; -AZOR5TAB2 PO; +BLOOD PRESSURE PILL; -ENOX40P SQ; -LACT PO; -LORTA5 PO; -METF500 PO; +METF500T PO; -VYTO10TA35 PO; +WALKER WHEELS/F1 MIS
[2018-02-01 09:33] VITALS: BP 190/85; PULSE 75; RESP 16; TEMP 97.5; O2SAT 98
--- NOTE | 2018-02-01 09:54 | PD ---
HPI Chief Complaint: Hypertension Time Seen by Provider: 09:38 Travel History International Travel<30 days: No Contact w/Intl Traveler<30days: No Traveled to known affect area: No History of Present Illness HPI Patient is an 82-year-old female who returns to emergency room for evaluation of hypertension. Patient reports that she was admitted to the hospital on Tuesday for high blood pressure, was discharged on Tuesday with the same doses for her antihypertensive medication. Patient reports that she felt lightheaded this morning and took her blood pressure and noted to be over 200 systolics. Patient concerned that she may need another medication for her hypertension. Reports that during admission, she was only given IV medications for her hypertension and her home medications were not changed PFSH Past Medical History Arthritis: Yes Asthma: No Autoimmune Disease: No Blood Disorders: No Anxiety: No Depression: No Heart Rhythm Problems: No Cancer: No Cardiovascular Problems: Yes High Cholesterol: Yes Chemotherapy: No Chest Pain: No Congestive Heart Failure: No COPD: No Cerebrovascular Accident: No Diabetes: Yes Diminished Hearing: No Endocrine: Yes Gastrointestinal Disorders: No GERD: No Glaucoma: No Genitourinary: No Headaches: No Hepatitis: No Hiatal Hernia: No Hypertension: Yes Immune Disorder: No Implanted Vascular Access Dvce: Yes Kidney Stones: No Musculoskeletal: No Neurologic: No Psychiatric: No Reproductive: No Respiratory: No Immunizations Current: No Migraines: No Myocardial Infarction: No Radiation Therapy: No Renal Failure: No Seizures: No Sickle Cell Disease: No Sleep Apnea: No Thyroid Disease: No Triglycerides - High: Yes Ulcer: No ?: Not Menopausal: Yes Past Surgical History Abdominal Surgery: No AICD: No Appendectomy: No Arteriovenous Shunt: No Body Medical Devices: LISA TO THE RIGHT FEMUR AND RIGHT KNEE Cardiac Surgery: No Cholecystectomy: No Ear Surgery: No Endocrine Surgery: No Eye Surgery: No Genitourinary Surgery: No Gynecologic Surgery: Yes (HYSTERECTOMY) Hysterectomy: Yes Insulin Pump: No Joint Replacement: No Neurologic Surgery: No Oral Surgery: No Pacemaker: No Thoracic Surgery: No Other Surgery: Yes (HYSTERECTOMY) Social History Alcohol Use: No Tobacco Use: No Substance Use: No Allergies-Medications (Allergen,Severity, Reaction): Coded Allergies: penicillin G (Unverified Allergy, Severe, Edema, 01/29/18) Reported Meds & Prescriptions Reported Meds & Active Scripts Active Aspirin EC (Aspirin) 81 Mg Tabdr 81 Mg PO DAILY Reported [Blood Pressure Pill] Metformin (Metformin HCl) 500 Mg Tab 500 Mg PO BIDPC Review of Systems General / Constitutional: No: Fever Eyes: No: Visual changes HENT: Positive: Lightheadedness, No: Headaches, Neck Pain Cardiovascular: No: Chest Pain or Discomfort Respiratory: No: Shortness of Breath Gastrointestinal: No: Abdominal Pain Genitourinary: No: Dysuria Musculoskeletal: No: Pain Skin: No Rash Neurologic: No: Weakness, Dizziness, Syncope, Focal Abnormalities Psychiatric: No: Depression Endocrine: No: Polydipsia Hematologic/Lymphatic: No: Easy Bruising Physical Exam Narrative GENERAL: NAD SKIN: Focused skin assessment warm/dry. HEAD: Atraumatic. Normocephalic. EYES: Pupils equal and round. No scleral icterus. No injection or drainage. ENT: No nasal bleeding or discharge. Mucous membranes pink and moist. NECK: Trachea midline. No JVD. CARDIOVASCULAR: Regular rate and rhythm. No murmur appreciated. RESPIRATORY: No accessory muscle use. Clear to auscultation. Breath sounds equal bilaterally. GASTROINTESTINAL: Abdomen soft, non-tender, nondistended. Hepatic and splenic margins not palpable. MUSCULOSKELETAL: No obvious deformities. No clubbing. No cyanosis. No edema. NEUROLOGICAL: Awake and alert. No obvious cranial nerve deficits. Motor grossly within normal limits. Normal speech. PSYCHIATRIC: Appropriate mood and affect; insight and judgment normal. Data Data Last Documented VS Vital Signs Date Time Temp Pulse Resp B/P (MAP) Pulse Ox O2 Delivery O2 Flow Rate FiO2 02/01/18 09:33 97.5 75 16 190/85 (120) 98 Orders Orders Amlodipine (Norvasc) (02/01/18 10:00) [facility] Medical Decision Making Medical Screen Exam Complete: Yes Emergency Medical Condition: Yes Medical Record Reviewed: Yes Interpretation(s) Vital Signs Date Time Temp Pulse Resp B/P (MAP) Pulse Ox O2 Delivery O2 Flow Rate FiO2 02/01/18 09:33 97.5 75 16 190/85 (120) 98 Differential Diagnosis accelerated hypertension Narrative Course Patient with history of hypertension and diabetes, currently on amlodipine 5 mg daily for hypertension. Patient was recently admitted to the hospital for this , and was discharged on home medications after her blood pressure stabilized with IV medications. Patient would like to avoid hospital admission this time and requests medication adjustment. A call was placed to Dr. Arreola, her PCP, to review plan of care. Patient currently is symptomatic. Vital Signs Date Time Temp Pulse Resp B/P (MAP) Pulse Ox O2 Delivery O2 Flow Rate FiO2 02/01/18 09:33 97.5 75 16 190/85 (120) [address] Arreola, patient's PCP, request that patient's amlodipine being increased to 10 mg, he would like to see here in the office on Tuesday. Diagnosis Primary Impression: Hypertension Qualified Codes: I10 - Essential (primary) hypertension Patient Instructions: General Instructions Additional Instructions: Please take 10 mg of amlodipine (2 pills) daily instead of 5 mg of amlodipine Please follow-up with Dr. Arreola on Tuesday morning in the office Return to the ER as needed Disposition: 01 DISCHARGE HOME Condition: Stable Kymberly Duffy DO Feb 01, 2018 09:54
[2018-02-01] MEDS ORDERED: amLODIPine BESYLATE 5 MG TAB PO ONE (10:00)
[2018-02-01] MEDS ORDERED: AMLO5TAB2 PO (10:06)
[2018-02-01 10:09] VITALS: BP 194/81; PULSE 81; RESP 18; O2SAT 100
== END 2018-02-01 10:43 | disposition home or self-care (01) ==
LOC: NEPD 09:30
DX: I10 Essential (primary) hypertension (principal); E11.9 Type 2 diabetes mellitus without complications; E78.00 Pure hypercholesterolemia, unspecified; M19.90 Unspecified osteoarthritis, unspecified site; Z79.84 Long term (current) use of oral hypoglycemic drugs; Z79.82 Long term (current) use of aspirin; Z79.899 Other long term (current) drug therapy
CPT/HCPCS: 99282